=== PATIENT | male | born 1945 | race Caucasian/White ===

== ENCOUNTER 2020-06-09 02:57 | Observation (INO) ==
[2020-06-09 03:41] LABS: Basophils % 0.3 %; Eosinophils % 0.2 %; Hematocrit 47.1 % (37.5-50.1); Hemoglobin 15.9 g/dL (12.9-16.9); Immature Granulocytes % 0.7 % (0-4); Lymphocytes # 0.9 K/mcL (0.6-4.6); Lymphocytes % 7.9 %; Mean Corpuscular HGB Conc 33.8 g/dL (31.6-35.5); Mean Corpuscular Hemoglobin 34.3 pg (28.0-33.3); Mean Corpuscular Volume 101.7 fL (83.0-100.0); Mean Platelet Volume 10.1 fL (9.4-12.4); Monocytes # 0.6 K/mcL (0.0-1.3); Monocytes % 5.3 %; Neutrophils # 9.6 K/mcL (1.6-8.9); Platelet Count 139 K/mcL (140-400); Red Blood Count 4.63 M/mcL (4.19-5.50); Red Cell Distribution Width 13.2 % (11.5-14.5); Segmented Neutrophils % 85.6 %; White Blood Count 11.2 K/mcL (4.3-11.1)
[2020-06-09 04:01] LABS: Albumin 4.3 g/dL (3.5-5.7); Albumin/Globulin Ratio 1.5 (1.1-2.2); Bilirubin,Direct 0.2 mg/dL (0.0-0.2); Bilirubin,Indirect 0.4 mg/dL (0.0-1.0); Bilirubin,Total 0.6 mg/dL (0.3-1.0); Globulin 2.9 g/dL (2.4-3.5); Total Protein 7.2 g/dL (6.4-8.9)
[2020-06-09 04:06] LABS: BUN/Creatinine Ratio 22 (6-26); Blood Urea Nitrogen 23 mg/dL (8-23); Calcium 9.1 mg/dL (8.6-10.3); Carbon Dioxide 28 mEq/L (23-29); Chloride 105 mEq/L (98-107); Glucose 110 mg/dL (70-105); Lipase 23 Units/L (11-82); Osmolality,Calculated 296 (280-300); Potassium 4.1 mEq/L (3.5-5.1); Sodium 141 mEq/L (136-145); Troponin I 0.09 ng/mL (< 0.04); eGFR For African Americans > 60 (> 60); eGFR For Non-African Americans > 60 (> 60)
[2020-06-09] MEDS ORDERED: *HR* Heparin 5,000 UNIT/ML VIAL IVP PRN ×2 (04:24)
[2020-06-09] MEDS ORDERED: *HR* Heparin 5,000 UNIT/ML VIAL IVP ONE (04:24)
[2020-06-09] MEDS ORDERED: Heparin 25,000UNIT/250ML 1/2NS 25,000 UNIT/250 ML IV.SOLN IVC SCH (04:30)
[2020-06-09] MEDS ORDERED: Isovue-370 500 ML BOTTLE IVP ONE (04:31)
[2020-06-09] MEDS ORDERED: *HR* FentaNYL (PF) 100 MCG/2 ML VIAL IVP ONE (04:33)
[2020-06-09 04:52] LABS: INR 0.9; Prothrombin Time 10.9 Seconds (9.4-12.1)
[2020-06-09 04:55] LABS: Activated Partial Thrombo Time 26.8 Seconds (26.0-36.0)
[2020-06-09] MEDS ORDERED: Naloxone 0.4 MG/ML INJ IVP PRN (05:56)
[2020-06-09] MEDS ORDERED: Morphine Sulfate 2 MG/ML SYRINGE IVP PRN (06:54)
[2020-06-09 08:20] VITALS: BP 109/72
[2020-06-09] MEDS ORDERED: Ibuprofen 400 MG TABLET PO ONE (09:14)
== END 2020-06-09 11:55 | disposition home or self-care (01) ==
LOC: CDU 02:57 → EMEROOARM 02:57 → SUATTDRO 06:36 → CDU 07:52
PROVIDERS: ADMIT Family Medicine; ATTEND Internal Medicine